=== PATIENT | male | born 1960 | race Caucasian/White ===

== ENCOUNTER 2016-06-16 10:48 | Inpatient (IN) | payer OTHER ==
[~2016-06-16] VITALS: Ht 180.3 cm; Wt 80.0 kg
--- NOTE | ~2016-06-16 | EKG ---
[address] [address] ELECTROCARDIOGRAM REPORT Name: KOBI JAVIER Room #: 439-P ADM IN M.R.#: [id number] Admission: 06/16/16 Attend Phys: Rich Tiwari MD Discharge: Date of : 62 Report #: [id number] THIS REPORT FOR: //name// [facility] ED Test Date: 2016-06-16 Test Time: 11:11:35 Pat Name: KOBI JAVIER Department: Room: 439 Gender: M Spiral Weaver: MZOOK : 1960 Requested By: Ignacio Santiago Order Number: [id number] MD: Jay Palma Measurements Intervals [place] Rate: 117 P: [place]: QRS: 53 QRSD: 80 T: 12 QT: 341 QTc: 476 Interpretive Statements Atrial fibrillation Borderline repol abnrm, inferolateral leads No previous ECG available for comparison Electronically Signed On 06-16-2016 14:59:46 CAR DUMPER OPERATOR by Jay Palma [email or web address] <ELECTRONICALLY SIGNED> By: Jay Palma MD 06/16/16 1459 1111 1111 Jay Palma MD /SETH
[~2016-06-16 10:48] MED LIST: ALDACTONE25 MG PO; CLARITIN10 MG PO; DILTIAZEM 24HR120 M2 PO; DILTIAZEM 24HR180 M1 PO; FLORINEF ACETA0.1 MG PO; FLUDROCORTISON0.1 MG PO; LASIX 20 MG TAB20 MG PO; LASIX 40 MG TAB40 M2 PO; MAGOX 400400 MG PO; METOPROLOL SUCC25 M1 PO; MIDODRINE HCL 55 M1 PO; POTASSIUM20 PO; PROTONIX40 M2 PO; TRIAMCINOLONE A80 G2 TOP; TRINATE TABLET1 TAB PO; VITAMIN B-1100 M1 PO
[2016-06-16 10:49] VITALS: BP 151/83
[2016-06-16] MEDS ORDERED: LOPERAMIDE 2 MG2 M1 PO (11:13)
[2016-06-16] MEDS ORDERED: ICY HOT BALM99.2 GM TOP (11:13)
[2016-06-16] MEDS ORDERED: APAP500 PO (11:14)
[2016-06-16] MEDS ORDERED: LEXAPRO 10 MG T10 M1 PO (11:14)
[2016-06-16] MEDS ORDERED: POTASSIUM20 PO (11:15)
[2016-06-16] MEDS ORDERED: MIDODRINE HCL10 MG PO (11:16)
[2016-06-16 11:51] LABS: HEMATOCRIT 39.4 % (42.0-52.0); HEMOGLOBIN 13.7 gm/dL (14.0-18.0); MANUAL DIFF YES; MCH 32.2 pg (26.0-34.0); MCHC 34.7 % (28.0-37.0); MCV 92.6 fL (80.0-100.0); RBC 4.25 mil/uL (4.50-6.00); RDW 14.3 % (10.5-14.5); WBC 6.6 thou/uL (4.0-11.0)
[2016-06-16 11:53] LABS: CALCIUM 8.6 mg/dL (8.5-10.1); CREATININE 0.9 mg/dL (0.6-1.3); POTASSIUM 3.6 mmol/L (3.5-5.1)
[2016-06-16 12:01] LABS: INR 1.2; PROTIME 12.3 Seconds (9.3-11.4)
[2016-06-16 12:07] LABS: URINE BILIRUBIN NEGATIVE (Negative); URINE BLOOD TRACE (Negative); URINE COLOR YELLOW; URINE GLUCOSE-RANDOM* NEGATIVE (Negative); URINE KETONES NEGATIVE (Negative); URINE NITRITE POSITIVE (Negative); URINE PROTEIN (DIPSTICK) NEGATIVE (Negative); URINE SPECIFIC GRAVITY 1.015 (1.003-1.035)
[2016-06-16 12:31] LABS: ABSOLUTE NEUTROPHILS 4.5 thou/uL (1.4-8.2); TOTAL CELL COUNT 100
[2016-06-16 12:32] LABS: HYPOCHROMASIA SLIGHT; PLATELET COUNT 81 thou/uL (150-400)
[2016-06-16 12:41] LABS: AMORPHOUS PHOSPHATES Few /LPF (None Seen)
[2016-06-16 12:42] LABS: CASTS None Seen /LPF (None Seen); SQUAMOUS 0-3 Few /LPF (0-3); URINE RBC 0-2 Rare /HPF (0-2); URINE WBC 0-5 Rare /HPF (0-5)
[2016-06-16 14:00] VITALS: BP 136/84
[2016-06-16 14:25] VITALS: BP 142/71
[2016-06-16 19:45] VITALS: BP 126/73
[2016-06-16 23:16] VITALS: BP 128/83
[2016-06-17 04:00] VITALS: BP 122/80
[2016-06-17 06:12] LABS: HEMATOCRIT 40.1 % (42.0-52.0); HEMOGLOBIN 13.7 gm/dL (14.0-18.0); MCH 31.9 pg (26.0-34.0); MCHC 34.2 % (28.0-37.0); MCV 93.3 fL (80.0-100.0); RBC 4.3 mil/uL (4.50-6.00); RDW 14.1 % (10.5-14.5); WBC 7.2 thou/uL (4.0-11.0)
[2016-06-17 06:28] LABS: POTASSIUM 3.5 mmol/L (3.5-5.1)
[2016-06-17 06:29] LABS: ALBUMIN 2.9 g/dL (3.4-5.0); CALCIUM 8.8 mg/dL (8.5-10.1); CREATININE 0.9 mg/dL (0.6-1.3); TOTAL BILIRUBIN 4.4 mg/dL (<0.1-1.0); TOTAL PROTEIN 7.2 g/dL (6.4-8.2)
[2016-06-17 08:00] VITALS: BP 124/77
[2016-06-17 12:00] VITALS: BP 121/91
[2016-06-17 15:49] VITALS: BP 126/78
[2016-06-17 20:00] VITALS: BP 111/65
[2016-06-18 05:00] VITALS: BP 100/42
[2016-06-18 07:46] VITALS: BP 115/81
[2016-06-18 12:47] VITALS: BP 94/62
[2016-06-18] MEDS ORDERED: CLONAZEPAM 1 MG1 M1 PO (13:58)
[2016-06-18] MEDS ORDERED: METOPROLOL SUCC25 M1 PO (15:00)
[2016-06-18 15:08] VITALS: BP 94/62
== END 2016-06-18 15:26 | disposition home or self-care (01) | DRG 308 ==
LOC: ER 10:48 → 4S 13:39 → EROBS 13:39 → 4S 14:01
PROVIDERS: Emergency Medicine
DX: I48.2 Chronic atrial fibrillation (principal); E43 Unspecified severe protein-calorie malnutrition; N18.6 End stage renal disease; I12.0 Hypertensive chronic kidney disease with stage 5 chronic kidney disease or end stage renal disease; I95.1 Orthostatic hypotension; K74.60 Unspecified cirrhosis of liver; F10.10 Alcohol abuse, uncomplicated; Y90.9 Presence of alcohol in blood, level not specified; G47.33 Obstructive sleep apnea (adult) (pediatric); Z96.642 Presence of left artificial hip joint; Z79.01 Long term (current) use of anticoagulants; Z68.24 Body mass index [BMI] 24.0-24.9, adult; Z82.49 Family history of ischemic heart disease and other diseases of the circulatory system; Z82.3 Family history of stroke; Z98.890 Other specified postprocedural states; Z79.899 Other long term (current) drug therapy; Z28.21 Immunization not carried out because of patient refusal; Z87.891 Personal history of nicotine dependence
CPT/HCPCS: 10100

== ENCOUNTER 2016-12-31 21:41 | Inpatient (IN) | payer OTHER ==
[~2016-12-31] VITALS: Ht 180.3 cm; Wt 82.6 kg
--- NOTE | ~2016-12-31 | HC ---
[facility] [place] [address] CONSULTATION Name: KOBI JAVIER Room #: 202-P [facility] IN M.R.#: [id number] Admission: 01/01/17 Attend Phys: Abraham Hutchison DO Discharge: Date of : 62 Report #: [id number] THIS REPORT FOR: //name// CC: Gregory William REASON FOR CONSULTATION: Atrial fibrillation. 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 He has permanent atrial fibrillation and orthostatic hypotension. He now is admitted with recurrent falls and orthostatic hypotension. I have been asked to see him in light of an elevated ventricular response with his atrial fibrillation. He denies palpitations. He denies chest pain, pressure, or ischemic type symptoms. There have been no heart failure symptoms including orthopnea, paroxysmal nocturnal dyspnea, or lower extremity edema. His lightheadedness occurs when he goes from a sitting or lying to standing position. ALLERGIES: There are no known drug allergies. MEDICATIONS: Include Protonix 40 mg daily, Aldactone 25 mg 3 times a day, Florinef 0.2 mg daily, Lexapro 10 mg daily, and midodrine 10 mg 3 times a day. PAST MEDICAL HISTORY: Medical records have been reviewed and include a history of left hip replacement, alcoholic cirrhosis, neuropathy, and permanent atrial fibrillation. An echo a little over a year ago was normal. He has a history of orthostasis from volume depletion in the past. He has a history of esophageal varices and portal hypertensive gastropathy. SOCIAL HISTORY: He has been a heavy drinker. He sales kitchen cabinets. , 3 children. FAMILY HISTORY: Unremarkable for premature coronary artery disease. REVIEW OF SYSTEMS: All systems negative except as that noted above. PHYSICAL EXAMINATION: GENERAL: A pleasant gentleman, in no distress. VITAL SIGNS: Blood pressure is 135/84, heart rate of 100 and irregular, he is afebrile, 5 feet 11 inches tall. HEENT: There are neither xanthelasma, subcutaneous xanthomata, oral mucosal or digital cyanosis or kyphoscoliosis present. CHEST: Clear to auscultation and percussion. CARDIAC: An irregularly irregular rhythm with normal S1, S2. No murmurs or rubs. ABDOMEN: Soft and nontender. No ascites. EXTREMITIES: Without cyanosis, clubbing, or edema. Radial pulses are 2+. [facility] [address] [place] [address] CONSULTATION Name: KOBI JAVIER Room #: 202-P [facility] IN M.R.#: [id number] Admission: 01/01/17 Attend Phys: Abraham Hutchison DO Discharge: Date of : 62 Report #: [id number] NEUROLOGIC: Alert with a nonfocal exam. LABORATORY DATA: Sodium 136, potassium 3.5, creatinine 0.8. Troponin is negative. ProBNP is negative. White count 6.4, hemoglobin 12, hematocrit 37, and platelet count 54,000. Chest x-ray demonstrates basilar atelectasis. Head CT demonstrates nothing acute. EKG, atrial fibrillation, otherwise normal. IMPRESSION: 1. Atrial fibrillation, permanent. 2. History of orthostatic hypotension. 3. Alcoholic cirrhosis. RECOMMENDATIONS: I believe that his orthostatic symptoms are likely related to intravascular volume depletion and I would consider reduction in his Aldactone dose. With his history of cirrhosis and advanced liver disease, anticoagulant therapy remains relatively contraindicated. I have added back a low dose metoprolol succinate for improve rate control of his atrial fibrillation, other than this no additional testing is needed at this point. Thank you for asking me to participate in his care. <ELECTRONICALLY SIGNED> By: Zeeshan Christopher MD, FACC 01/05/17 1633 0842 1100 Zeeshan Christopher MD, FACC /nt
--- NOTE | ~2016-12-31 | EKG ---
[address] [place] [address] ELECTROCARDIOGRAM REPORT Name: KOBI JAVIER Room #: 202-P ADM IN M.R.#: [id number] Admission: 01/01/17 Attend Phys: Rudy William DO Discharge: Date of : 62 Report #: [id number] THIS REPORT FOR: //name// [facility] ED Test Date: 2017-01-01 Test Time: 00:05:18 Pat Name: KOBI JAVIER Department: Room: 202 Gender: M Garnett Fixer: Mikayla CALDWELL : 1960 Requested By: Cameron Milton Order Number: [id number] MD: Zeeshan Christopher Measurements Intervals [place] Rate: 100 P: [place]: QRS: 39 QRSD: 97 T: -5 QT: 363 QTc: 469 Interpretive Statements Atrial fibrillation Borderline repol abnrm, inferolateral leads Compared to ECG 07/31/2016 22:04:27 No significant change was found Electronically Signed On 01-01-2017 9:04:19 CDT by Zeeshan Christopher [email or web address] <ELECTRONICALLY SIGNED> By: Zeeshan Christopher MD, [facility] 01/01/17 0904 0005 0005 Zeeshan Christopher MD, [facility] /EPI
[~2016-12-31 21:41] MED LIST changes: +APAP500 PO; +CLONAZEPAM 1 MG1 M1 PO; +ICY HOT BALM99.2 GM TOP; +LEXAPRO 10 MG T10 M1 PO; +LOPERAMIDE 2 MG2 M1 PO; +MIDODRINE HCL10 MG PO
[2016-12-31 22:32] VITALS: BP 125/80
[2017-01-01 00:19] LABS: HEMOGLOBIN 12.3 gm/dL (14.0-18.0); MCH 30.8 pg (26.0-34.0); MCHC 33.4 g/dL (28.0-37.0); MCV 92.2 fL (80.0-100.0); RBC 4.01 mil/uL (4.50-6.00); RDW 17.3 % (10.5-14.5); WBC 4.9 thou/uL (4.0-11.0)
[2017-01-01 00:27] LABS: ANION GAP 9 mmol/L (7-16); BUN 5 mg/dL (7-18); CALCIUM 8.6 mg/dL (8.5-10.1); CHLORIDE 102 mmol/L (98-107); CO2 29 mmol/L (21-32); CREATININE 0.8 mg/dL (0.7-1.3); GLUCOSE 119 mg/dL (74-106); POTASSIUM 3.6 mmol/L (3.5-5.1); SODIUM 140 mmol/L (136-145)
[2017-01-01 00:32] LABS: INR 1.2; PROTIME 12.1 Seconds (9.3-11.4)
[2017-01-01 00:40] LABS: NT-PRO BRAIN NAT PEPTIDE 111 pg/mL (<300); TROPONIN-I < 0.04 ng/mL (<0.04-0.07)
[2017-01-01 07:11] VITALS: BP 118/79
[2017-01-01 08:50] VITALS: BP 119/76
[2017-01-01 11:00] VITALS: BP 142/76
[2017-01-01 15:47] VITALS: BP 131/88
[2017-01-01 20:00] VITALS: BP 137/86
[2017-01-02] VITALS (8 sets, daily range): BP systolic 106–141; BP diastolic 61–95
[2017-01-02 04:58] LABS: HEMATOCRIT 37.9 % (42.0-52.0); HEMOGLOBIN 12.8 gm/dL (14.0-18.0); MCHC 33.8 g/dL (28.0-37.0); MCV 91.7 fL (80.0-100.0); PLATELET COUNT 54 thou/uL (150-400); RBC 4.13 mil/uL (4.50-6.00); RDW 16.7 % (10.5-14.5); WBC 6.4 thou/uL (4.0-11.0)
[2017-01-02 05:04] LABS: MANUAL DIFF YES
[2017-01-02 05:14] LABS: ALBUMIN 2.9 g/dL (3.4-5.0); CALCIUM 8.2 mg/dL (8.5-10.1); CREATININE 0.8 mg/dL (0.7-1.3); POTASSIUM 3.5 mmol/L (3.5-5.1); TOTAL BILIRUBIN 4.3 mg/dL (<0.1-1.0)
[2017-01-02 05:30] LABS: TOTAL PROTEIN 7.6 g/dL (6.4-8.2)
[2017-01-02 05:41] LABS: ABSOLUTE NEUTROPHILS 4.4 thou/uL (1.4-8.2); ANISOCYTOSIS 1+; TOTAL CELL COUNT 100
[2017-01-02 05:42] LABS: PLATELET ESTIMATE DECREASED
[2017-01-02 16:34] LABS: MAGNESIUM 1.3 mg/dL (1.8-2.4); PHOSPHORUS 2.8 mg/dL (2.5-4.9)
[2017-01-02 17:18] LABS: URINE BILIRUBIN 2+ (Negative); URINE BLOOD TRACE (Negative); URINE COLOR ORANGE; URINE GLUCOSE-RANDOM* TRACE (Negative); URINE KETONES TRACE (Negative); URINE LEUKOCYTES-REFLEX 1+ (Negative); URINE PROTEIN (DIPSTICK) 1+ (Negative); URINE UROBILINOGEN >= 8.0 E.U./dl (0.2-1.0)
[2017-01-02 17:21] LABS: ICTOTEST (BILI CONFIRMATORY) Positive (Negative)
[2017-01-02 17:24] LABS: CASTS None Seen /LPF (None Seen); CRYSTALS None Seen /LPF (None Seen); SQUAMOUS None Seen /LPF (0-3)
[2017-01-02 17:28] LABS: URINE RBC 0-2 Rare /HPF (0-2); URINE WBC-REFLEX 6-15 Few /HPF (0-5)
[2017-01-02 20:06] LABS: FREE T4 1.38 ng/dL (0.82-1.77)
[2017-01-03] VITALS (7 sets, daily range): BP systolic 22–130; BP diastolic 68–84
[2017-01-03 04:14] LABS: HEMATOCRIT 38.2 % (42.0-52.0); HEMOGLOBIN 12.9 gm/dL (14.0-18.0); MCH 31.2 pg (26.0-34.0); MCHC 33.7 g/dL (28.0-37.0); MCV 92.4 fL (80.0-100.0); PLATELET COUNT 66 thou/uL (150-400); RBC 4.14 mil/uL (4.50-6.00); RDW 16.7 % (10.5-14.5); WBC 8.2 thou/uL (4.0-11.0)
[2017-01-03 04:31] LABS: MANUAL DIFF YES
[2017-01-03 04:41] LABS: POTASSIUM 3.5 mmol/L (3.5-5.1)
[2017-01-03 04:50] LABS: CALCIUM 8.6 mg/dL (8.5-10.1); CREATININE 0.9 mg/dL (0.7-1.3)
[2017-01-03 05:24] LABS: ABSOLUTE NEUTROPHILS 5.5 thou/uL (1.4-8.2); TOTAL CELL COUNT 100
[2017-01-03 05:25] LABS: ANISOCYTOSIS 1+; PLATELET ESTIMATE DECREASED
[2017-01-03 05:28] LABS: LARGE PLATELETS OCCASIONAL
[2017-01-03 20:04] LABS: AMP/METHAMP Negative (Negative); BARBITURATES Negative (Negative); BENZODIAZEPINES Negative (Negative); COCAINE Negative (Negative); METHADONE Negative (Negative); OPIATES Negative (Negative); PCP Negative (Negative); THC Negative (Negative)
[2017-01-03 20:14] LABS: ALBUMIN 2.8 g/dL (3.4-5.0); DIRECT BILIRUBIN 2.2 mg/dL (<0.1-0.3); MAGNESIUM 1.8 mg/dL (1.8-2.4); TOTAL BILIRUBIN 4.5 mg/dL (<0.1-1.0); TOTAL PROTEIN 7.2 g/dL (6.4-8.2)
[2017-01-04 03:28] LABS: HEMATOCRIT 35.6 % (42.0-52.0); HEMOGLOBIN 11.9 gm/dL (14.0-18.0); MCH 31.1 pg (26.0-34.0); MCHC 33.4 g/dL (28.0-37.0); MCV 93.1 fL (80.0-100.0); PLATELET COUNT 82 thou/uL (150-400); RBC 3.82 mil/uL (4.50-6.00); RDW 17.3 % (10.5-14.5); WBC 7.5 thou/uL (4.0-11.0)
[2017-01-04 03:34] LABS: MANUAL DIFF YES
[2017-01-04 03:42] LABS: CALCIUM 8.1 mg/dL (8.5-10.1); CREATININE 0.8 mg/dL (0.7-1.3); MAGNESIUM 1.6 mg/dL (1.8-2.4); PHOSPHORUS 3.9 mg/dL (2.5-4.9); POTASSIUM 3.5 mmol/L (3.5-5.1)
[2017-01-04 04:40] VITALS: BP 106/76
[2017-01-04 07:25] VITALS: BP 122/84
[2017-01-04 08:45] LABS: ABSOLUTE NEUTROPHILS 5.4 thou/uL (1.4-8.2); PLATELET ESTIMATE DECREASED; TOTAL CELL COUNT 100
[2017-01-04 08:46] LABS: ANISOCYTOSIS 1+
[2017-01-04 11:30] VITALS: BP 105/70
[2017-01-04 15:27] LABS: ALBUMIN 2.5 g/dL (3.4-5.0); DIRECT BILIRUBIN 1.7 mg/dL (<0.1-0.3); TOTAL BILIRUBIN 3.3 mg/dL (<0.1-1.0); TOTAL PROTEIN 6.5 g/dL (6.4-8.2)
[2017-01-04 16:00] VITALS: BP 111/74
[2017-01-04 19:33] VITALS: BP 125/80
[2017-01-05 04:25] VITALS: BP 150/95
[2017-01-05 07:20] VITALS: BP 132/87
[2017-01-05 11:20] VITALS: BP 123/87
[2017-01-05 12:25] LABS: ALBUMIN 2.7 g/dL (3.4-5.0); DIRECT BILIRUBIN 1.8 mg/dL (<0.1-0.3); TOTAL BILIRUBIN 3.4 mg/dL (<0.1-1.0); TOTAL PROTEIN 6.8 g/dL (6.4-8.2)
[2017-01-05 15:25] VITALS: BP 136/84
[2017-01-05 19:13] VITALS: BP 126/86
[2017-01-06 03:03] VITALS: BP 150/86
[2017-01-06 03:06] LABS: HEMATOCRIT 36.2 % (42.0-52.0); HEMOGLOBIN 12.3 gm/dL (14.0-18.0); MCH 31.5 pg (26.0-34.0); MCHC 33.8 g/dL (28.0-37.0); MCV 93.1 fL (80.0-100.0); PLATELET COUNT 117 thou/uL (150-400); RBC 3.89 mil/uL (4.50-6.00); RDW 17.2 % (10.5-14.5); WBC 7.6 thou/uL (4.0-11.0)
[2017-01-06 03:08] LABS: CALCIUM 8.4 mg/dL (8.5-10.1); CREATININE 0.8 mg/dL (0.7-1.3); POTASSIUM 3.1 mmol/L (3.5-5.1)
[2017-01-06 03:13] LABS: MANUAL DIFF YES
[2017-01-06 07:05] VITALS: BP 116/51
[2017-01-06 09:35] LABS: ABSOLUTE NEUTROPHILS 4.7 thou/uL (1.4-8.2); PLATELET ESTIMATE NORMAL; TOTAL CELL COUNT 100
[2017-01-06] MEDS ORDERED: KEFLEX500 MG PO (10:12)
[2017-01-06] MEDS ORDERED: XIFAXAN550 MG PO (10:14)
[2017-01-06] MEDS ORDERED: TRAMADOL 50 MG50 MG PO (10:14)
[2017-01-06 11:00] VITALS: BP 105/69
[2017-01-06 15:10] VITALS: BP 103/70
[2017-01-06 20:08] VITALS: BP 127/79
[2017-01-07 03:34] VITALS: BP 137/89
[2017-01-07 07:00] VITALS: BP 131/80
== END 2017-01-07 10:17 | DRG 205 ==
LOC: ER 21:41 → 2N 01-01 05:45 → EROBS 01-01 05:45 → 2N 01-01 07:13
PROVIDERS: Emergency Medicine; Family Medicine; Internal Medicine Geriatric Medicine; Nurse Practitioner Adult Health
DX: S22.31XA Fracture of one rib, right side, initial encounter for closed fracture (principal); G93.41 Metabolic encephalopathy; F10.239 Alcohol dependence with withdrawal, unspecified; Z96.642 Presence of left artificial hip joint; I48.2 Chronic atrial fibrillation; F32.9 Major depressive disorder, single episode, unspecified; I95.9 Hypotension, unspecified; K70.31 Alcoholic cirrhosis of liver with ascites; E87.6 Hypokalemia; G62.9 Polyneuropathy, unspecified; W18.39XA Other fall on same level, initial encounter; Y93.89 Activity, other specified; Y92.098 Other place in other non-institutional residence as the place of occurrence of the external cause; Z79.01 Long term (current) use of anticoagulants; Z82.49 Family history of ischemic heart disease and other diseases of the circulatory system; Z82.3 Family history of stroke; Z87.891 Personal history of nicotine dependence; Z79.899 Other long term (current) drug therapy; Y99.8 Other external cause status
CPT/HCPCS: 10081

== ENCOUNTER 2018-09-29 21:27 | Inpatient (IN) | payer OTHER ==
[~2018-09-29] VITALS: Ht 193.7 cm; Wt 72.6 kg
[~2018-09-29 21:27] MED LIST changes: +KEFLEX500 MG PO; +TRAMADOL 50 MG50 MG PO; +XIFAXAN550 MG PO
[2018-09-29 21:28] VITALS: BP 124/76
[2018-09-29] MEDS ORDERED: METOPROLOL SUCC25 M1 PO (21:41)
[2018-09-29] MEDS ORDERED: DIGOXIN125 MCG PO (21:41)
[2018-09-29] MEDS ORDERED: LACTULOSE10 GM/154 PO (21:42)
[2018-09-29 22:24] LABS: HEMATOCRIT 43.4 % (42.0-52.0); HEMOGLOBIN 14.8 gm/dL (14.0-18.0); MCH 31.5 pg (26.0-34.0); MCV 92.6 fL (80.0-100.0); PLATELET COUNT 171 thou/uL (150-400); RBC 4.68 mil/uL (4.50-6.00); RDW 13.3 % (10.5-14.5)
[2018-09-29 22:28] LABS: URINE BILIRUBIN NEGATIVE (Negative); URINE BLOOD NEGATIVE (Negative); URINE CLARITY CLEAR; URINE COLOR YELLOW; URINE GLUCOSE-RANDOM* NEGATIVE (Negative); URINE KETONES NEGATIVE (Negative); URINE LEUKOCYTES-REFLEX NEGATIVE (Negative); URINE NITRITE-REFLEX NEGATIVE (Negative); URINE PROTEIN (DIPSTICK) NEGATIVE (Negative); URINE SPECIFIC GRAVITY <= 1.005 (1.005-1.035)
[2018-09-29 22:37] LABS: ALBUMIN 3.1 g/dL (3.4-5.0); ANION GAP 14 mmol/L (7-16); BUN 5 mg/dL (7-18); CALCIUM 8.2 mg/dL (8.5-10.1); CHLORIDE 106 mmol/L (98-107); CO2 26 mmol/L (21-32); CREATININE 0.9 mg/dL (0.7-1.3); GLUCOSE 113 mg/dL (74-106); SGOT 86 U/L (15-37); SGPT 37 U/L (30-65); SODIUM 146 mmol/L (136-145); TOTAL BILIRUBIN 2.7 mg/dL (<0.1-1.0); TOTAL PROTEIN 6.7 g/dL (6.4-8.2)
[2018-09-29 22:37] LABS: AMP/METHAMP Negative (Negative); BARBITURATES Negative (Negative); BENZODIAZEPINES Negative (Negative); COCAINE Negative (Negative); METHADONE Negative (Negative); OPIATES Negative (Negative); PCP Negative (Negative)
[2018-09-29 22:52] LABS: SALICYLATE < 2.8 mg/dL (2.8-20.0)
[2018-09-29 22:59] LABS: ANISOCYTOSIS 1+; PLATELET ESTIMATE NORMAL
[2018-09-30 06:31] VITALS: BP 123/75
[2018-09-30 07:15] VITALS: BP 129/84
[2018-09-30 11:45] VITALS: BP 137/70
--- NOTE | 2018-09-30 16:43 | EKG ---
[address] [place] [address] ELECTROCARDIOGRAM REPORT Name: KOBI JAVIER Room #: [facility] ADM IN M.R.#: [id number] ������������������ Admission: 09/30/18 ������������������ Attend Phys: Quan Vega DO Discharge: ������������������ Date of : 62 Report #: [id number] ����������������������������������������������������������������� [id number] THIS REPORT FOR: //name// [facility] Test Date: 2018-09-30 Test Time: 11:39:27 Pat Name: KOBI JAVIER Department: Room: [facility] Gender: M Work Station Support Specialist: Grabiel LYNCH : 1960 Requested By: Quan Vega Order Number: [id number] MD: Ezra Ibrahim Measurements Intervals [place] Rate: 101 P: [place]: QRS: 48 QRSD: 84 T: -77 QT: 371 QTc: 481 Interpretive Statements Atrial fibrillation Nonspecific ST segment abnormality Compared to ECG 01/01/2017 00:05:18 No significant changes Electronically Signed On 09-30-2018 16:43:15 CDT by Ezra Ibrahim [email or web address] ��������������������������������������������� <ELECTRONICALLY SIGNED> ���������������������������������������� By: Ezra Ibrahim MD ��������������������������������������������� 09/30/18 1643 1139 1139 Ezra Ibrahim MD /SETH
[2018-09-30 20:29] VITALS: BP 142/43
--- NOTE | 2018-10-01 00:58 | NUR ---
ASSUMED CARE @ 19:15. IN HIS ROOM. A&OX4. C/O NAUSEA, ZOFRAN ORDER PROCURED, AND PROVIDED. CIWA 15, 2MG ATIVAN PROVIDED. NAUSEA RESOLVED AND 2100 MEDS GIVEN. WILL CONTINUE TO MONITOR.
[2018-10-01 01:07] VITALS: BP 142/43
--- NOTE | 2018-10-01 04:23 | NUR ---
AWAKENED @ 0400, USED RESTROOM AND RETURNED TO BED. DENIES PAIN, ANXIETY DENIES NEED FOR MEDICATION. WILL CONTINUE TO MONITOR.
[2018-10-01 04:49] LABS: HEMATOCRIT 38.2 % (42.0-52.0); HEMOGLOBIN 13.2 gm/dL (14.0-18.0); MCH 31.9 pg (26.0-34.0); MCHC 34.5 g/dL (28.0-37.0); MCV 92.6 fL (80.0-100.0); PLATELET COUNT 137 thou/uL (150-400); RBC 4.13 mil/uL (4.50-6.00); RDW 13.2 % (10.5-14.5); WBC 8.2 thou/uL (4.0-11.0)
[2018-10-01 04:58] LABS: CALCIUM 8.4 mg/dL (8.5-10.1); CREATININE 0.8 mg/dL (0.7-1.3); MAGNESIUM 1.7 mg/dL (1.8-2.4); POTASSIUM 3.7 mmol/L (3.5-5.1)
[2018-10-01 06:44] LABS: ABSOLUTE NEUTROPHILS 5.1 thou/uL (1.4-8.2)
[2018-10-01 07:35] VITALS: BP 112/68
[2018-10-01 22:15] VITALS: BP 115/71
--- NOTE | 2018-10-01 23:26 | NUR ---
ASSUMED CARE @ 19:15. LYING IN BED, AWAKE, BUT LETHARGIC. ANSWERS QUESTIONS APPROPRIATELY, A&OX4. DENIES SI AND HI. DENIES ANXIETY AND PAIN. VS STABLE. WILL CONTINUE TO MONITOR.
[2018-10-01 23:37] VITALS: BP 115/71
--- NOTE | 2018-10-02 02:36 | NUR ---
NEW ORDER FOR SEROQUEL 75MG NOW FOR SLEEP AT PTS REQUEST. HE REPORTS THAT HE HAS ONLY SLEPT 35 MINUTES SINCE HE TOOK MELATONIN @ 22:00.
[2018-10-02 07:15] VITALS: BP 101/61
--- NOTE | 2018-10-02 15:30 | NUR ---
ASSUMED PATIENT CARE AT 0700. PATIENT ORIENTED TO NAME ONLY. FLAT AFFECT, DEPRESSED MOOD, CONFUSED, FORGETFUL BEHAVIOR, EVIDENCED BY REPEATING SAME QUESTIONS, CONFUSED TO WHERE HE IS, WANTING TO CONTACT FACILIITY OF RESIDENCE TO "ASK ABOUT A BOX OF CLOTHES," THAT PATIENT FEELS HE NEEDS ITEMS HERE. ONLY CLOTHING HERE WAS IN SECURITY PROPERTY, WHICH NURSE OBTAINED FROM SECURITY, WHO BROUGHT TO UNIT. LATER STATED THAT HE HAD A WALLET WITH A LOT OF MONEY IN IT. STATED THAT HE HAS A LOT OF MONEY--MY WHOLE LIFE SAVINGS." NURSE CLARIFIED WITH SECURITY THAT THEY HAVE NOTHING LOCKED UP FOR PATIENT. RELAYED INFORMATION TO PATIENT.
[2018-10-02 18:05] VITALS: BP 101/61
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
--- NOTE | 2018-10-02 19:11 | NUR ---
PATIENT'S BED SCALE WEIGHT 193.7 LBS. THIS DATE
[2018-10-02 20:53] VITALS: BP 101/67
--- NOTE | 2018-10-03 03:33 | NUR ---
WITHDRAWN TO ROOM AT START OF SHIFT-UPON INITAL ASSESSMENT LYING INROOM WITH LIGHTS OFF/EYES CLOSED (AT 1945). DYSPHORIC MOOD-ABRUPT/BRIEF RESPONSES TO QUESTIONS/INQUIRIES FROM THIS RN-CONVERSING WITH EYES CLOSED UNTIL ASKED IF HE COULD OPEN THEM. DESCRIBES MOOD "TIRED" "EXHUASTED"-WHEN ASKED IF I COULD GET HIM ANYTHING HE STATES "OUT OF HERE" DENIES C/O PAIN/DISCOMFORT. DENIES SI/SH/HI. NO NOTED TREMOR,DIAPHORESIS,ACUTE ANXIETY,DENIES NAUSEA. VS STABLE. APPEARS GUARDED,WITHDRAWN AND MINIMALLY INVESTED IN TX. DID COME OUT OF ROOM BRIEFLY AT 1130 TO GET ICE AND GAIT APPEARS STEADY WITHOUT ASSISTIVE DEVICES. [id number] PO PRN ALONG WITH MELATONIN 3MG PO PRN AT 2145 PER REQUEST FOR SLEEP.
--- NOTE | 2018-10-03 05:06 | NUR ---
2100 METOPROLOL 25MG NOT ADMINISTERD D/T BP OF 100/68-PT DOES REPORT DIZZINESS UPON STANDING AND WITH POSITION CHANGES-PULSE 80 AND REGULAR
[2018-10-03 07:15] VITALS: BP 111/77
[2018-10-03 07:30] VITALS: BP 111/77
[2018-10-03 07:40] VITALS: BP 111/77
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
--- NOTE | 2018-10-03 08:45 | NUR ---
PT DIDN'T WANT TO GO TO GROUP. BACK TO BED AFTER BREAKFAST.
--- NOTE | 2018-10-03 15:12 | NUR ---
PT TOOK SHOWER AND DRESSING CHANGED TO LEFT WRIST. SUTURES INTACT. NO SIGNS OF REDDNESS OR DRAINAGE. APPLIED OINT AND RE-WRAPPED WITH STERILE QUAZE AND SECURED WITH TAPE.
--- NOTE | 2018-10-03 16:00 | NUR ---
PT ASKED FOR BIG BLACK BOOK TO CANCEL DR. SCOTT FOR TOMMORROW. PT HAS BEEN LOOKING AT HIS BLACK BOOK AND TALKING ON PHONE.
[2018-10-03 17:30] VITALS: BP 123/73
[2018-10-03 19:35] VITALS: BP 128/74
--- NOTE | 2018-10-03 19:43 | NUR ---
ASSUMED CARE OF THE PT AT 1914 PM. ALERT ET ORIENTED X 3. MAKES NEEDS KNOWN. RESTING IN BED WHEN THIS ASSOCIATE PRINCIPAL CAME ON DUTY. HEART RATE REGULAR, LUNGS CLEAR BILATERALLY, +BS HEARD IN ALL 4 QUADRANTS. +PP BILATERALLY. DENIES SI/HI/A/D. DENIES A/V HALLUNICATIONS. REMAINS ON 12 MINUTE CHECKS FOR HER SAFETY.
--- NOTE | 2018-10-04 02:12 | NUR ---
THE PT HAS BEEN SLEEPING MOST OF THE NOC SHIFT. NO C/O PAIN AT THIS TIME. REMAINS ON 12 MINUTE CHECKS FOR HIS SAFETY. DRESSING TO LEFT WRIST, C/D/I.
--- NOTE | 2018-10-04 06:22 | NUR ---
THE PT SLEPT 11 HOURS LAST NIGHT.
[2018-10-04 07:15] VITALS: BP 97/64
[2018-10-04 08:00] VITALS: BP 97/64
--- NOTE | 2018-10-04 08:30 | NUR ---
PT UP EATING BREAKFAST. PT TOOK PO MEDS WITHOUT ISSUES. PT EATS BREAKFAST THEN GOES BACK TO ROOM. PT REFUSES GROUPS.
[2018-10-04] MEDS ORDERED: XIFAXAN550 MG PO (10:05)
[2018-10-04] MEDS ORDERED: DIGOXIN250 MCG PO (10:06)
[2018-10-04] MEDS ORDERED: LOPRESSOR25 PO (10:06)
[2018-10-04] MEDS ORDERED: MIDODRINE HCL 55 M1 PO (10:06)
[2018-10-04] MEDS ORDERED: GABAPENTIN 100100 MG PO (10:08)
[2018-10-04] MEDS ORDERED: PEPCID20 MG PO (10:09)
[2018-10-04] MEDS ORDERED: PRENATAL COMPL1 EACH PO (10:09)
[2018-10-04] MEDS ORDERED: MELATONIN3 MG PO (10:09)
[2018-10-04 10:40] VITALS: BP 97/64
[2018-10-04 10:59] VITALS: BP 97/64
--- NOTE | 2018-10-04 11:03 | NUR ---
Patient Name: KOBI JAVIER Admission Date: 09/30/18 DISCHARGE PLAN: Pt will be discharge to [address] in [place], [place]. Care Assessment: Pt was assessed by Dr. Vega concerning his suicide attempt. Level II Assessment: None Transportation: Pt will be discharge through [facility]. Special Instructions/Notes: Pt was scheduled for Php program through [facility] on , October 06, 2018 at 10:00am. Pt will be completing his intake [facility] [place] [facility] [place] [address]. DISCHARGE TO PLACEMENT: [address] Facility: Phone: Fax: Address: [address] [place] [address] Contact Name: PCP: Psychiatrist: [facility]
--- NOTE | 2018-10-04 12:35 | NUR ---
PT GIVEN NON-STICK DRESSING AND TAPE FOR LACERATION TO LEFT WRIST. PT GETTING READY TO LEAVE. BREASTFEEDING EDUCATOR TOLD PT THAT [facility] IS HERE. PT GOT UP AND YELLED WELL OK LETS GET OUT OF HERE. PT WAS WANTING TO SEE HIS CELL PHONE. PT LEFT VIA W/C. TO SECURITY AND OBTAINED HIS PERSONAL BELONGINGS.
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
--- NOTE | 2018-10-06 21:38 | D ---
[facility] [place] [address] DISCHARGE SUMMARY Name: KOBI JAVIER Room #: 520B-B DIS IN M.R.#: [id number] Admission: 09/30/18 ������������������ Attend Phys: Quan Vega DO Discharge: 10/04/18 ������������������ Date of : 62 Report #: [id number] THIS REPORT FOR: //name// CC: Quan Vega [facility] physician/PCP Jose Antonio Nava DATE OF SERVICE: 10/04/2018 KENNEL ATTENDANT AT THE TIME OF DISCHARGE: Quan Márquez MD DISCHARGE DIAGNOSES: 1. Unspecified depression, resolved. 2. Alcohol intoxication, resolved. 3. Substance use disorder for alcohol, at least moderate degree. DISCHARGE PLAN: The patient is discharged to [facility] in [place], [place]. The patient has appointment at [facility], 10/06/2018 at 10:00 a.m. His intake is located at [address] [place] [address]. The [facility] is located at [address] [place] [address]. Regular diet. Absolutely no alcohol or illicit drugs. DISCHARGE MEDICATIONS: Xifaxan 550 mg p.o. b.i.d.; midodrine 10 mg p.o. at 0600, 1200, 1800 for hypertension; digoxin 25 mcg oral daily for atrial fibrillation, rate control; metoprolol tartrate 25 mg p.o. b.i.d. for rate control; Neurontin 200 mg p.o. t.i.d. for anxiety as well as reduce chances of alcohol relapse; famotidine 20 mg p.o. b.i.d. before meals for GERD. He is recommended to take a daily multivitamin and melatonin 3 mg p.o. at bedtime p.r.n. Also, lactulose 30 mL p.o. t.i.d. will be helpful for the patient to continue due to his hyperammonemia from cirrhosis. ACTIVITY LEVEL: As tolerated. REASON FOR ADMISSION: Laceration horizontally on distal left volar, requiring sutures; threats of suicide. HOSPITAL COURSE: The patient was admitted to Geriatric Psychiatric Unit. He was placed on CIWA protocol for approximately 24 hours in the event of alcohol withdrawal, there was no material withdrawal the patient went through. The patient attended some groups, was not all groups, was perhaps not the most engaged. The patient given his desperate social circumstances, he did not have family supports involved, not knowing number of his sister either. While on the unit, the patient did not make any suicide attempts or voiced to staff. We did get a call or two from a friend of him and his , but they expressed concern and the patient was given their number for him to call. [facility] [address] [place] [address] DISCHARGE SUMMARY Name: KOBI JAVIER Room #: 520B-B DIS IN M.R.#: [id number] Admission: 09/30/18 ������������������ Attend Phys: Quan Vega DO Discharge: 10/04/18 ������������������ Date of : 62 Report #: [id number] LABORATORY DATA THIS ADMISSION: CBC showed on the 20th, H and H 13.2, 38.2, white count 8.2, platelets 137. Chemistries within normal limits. Estimated GFR was 100, calcium 8.4, magnesium 1.7. Ammonia level on admission was 62. Digoxin level was 0.3, slightly low. Hospitalist did not want to adjust that further. Urinalysis was negative. UDS was positive for the alcohol. His initial level it should be noted was reportedly over 400. PHYSICAL EXAMINATION: VITAL SIGNS ON THE DAY OF DISCHARGE: Temperature 36.2, pulse rate 75, respirations 15, BP 97/64. MUSCULOSKELETAL: This is a well-developed, ambulatory male wearing hospital gown. NEUROLOGIC: Attention limited. Concentration fair. Speech is normal rate and tone. Thought process linear, goal directed. Thought content with a poverty of thought. No psychomotor agitation. No psychomotor retardation. Denied auditory, visual, or tactile hallucination. Denied suicidal intent or plan. Endorsed hopelessness and helplessness. Denied homicidal intent or plan. Memory not formally tested. Insight limited. Judgment limited. Fund of knowledge, no greater than average. PROGNOSIS: For the patient is poor given homelessness, longstanding alcoholism. ��������������������������������������������� <ELECTRONICALLY SIGNED> ���������������������������������������� By: Quan Vega DO ��������������������������������������������� 10/06/182137 06 54 Quan Vega DO /nt
== END 2018-10-04 12:46 | DRG 881 ==
LOC: ER 21:27 → SBH 09-30 01:24 → EROBS 09-30 01:24 → SBH 09-30 01:24
PROVIDERS: Emergency Medicine; Nurse Practitioner; ADMIT Psychiatry & Neurology Psychiatry
PROC: 0HQEXZZ Repair Left Lower Arm Skin, External Approach (ICD-10-PCS; principal; 2018-09-30)
DX: F32.9 Major depressive disorder, single episode, unspecified (principal); R45.851 Suicidal ideations; F19.20 Other psychoactive substance dependence, uncomplicated; K76.6 Portal hypertension; G62.9 Polyneuropathy, unspecified; Z96.642 Presence of left artificial hip joint; E87.6 Hypokalemia; S61.512A Laceration without foreign body of left wrist, initial encounter; K74.60 Unspecified cirrhosis of liver; I95.9 Hypotension, unspecified; G47.00 Insomnia, unspecified; K72.90 Hepatic failure, unspecified without coma; I48.2 Chronic atrial fibrillation; F10.229 Alcohol dependence with intoxication, unspecified; I95.1 Orthostatic hypotension; Z79.899 Other long term (current) drug therapy; X58.XXXA Exposure to other specified factors, initial encounter; Y93.89 Activity, other specified; Y92.89 Other specified places as the place of occurrence of the external cause; Y99.8 Other external cause status; Z59.0 Homelessness
CPT/HCPCS: 10880

== ENCOUNTER 2018-10-07 10:22 | Emergency (ER) | payer OTHER ==
[~2018-10-07] VITALS: Ht 180.3 cm; Wt 86.2 kg
[~2018-10-07 10:22] MED LIST changes: +DIGOXIN125 MCG PO; +DIGOXIN250 MCG PO; +GABAPENTIN 100100 MG PO; +LACTULOSE10 GM/154 PO; +LOPRESSOR25 PO; +MELATONIN3 MG PO; +PEPCID20 MG PO; +PRENATAL COMPL1 EACH PO
[2018-10-07 11:23] VITALS: BP 126/75
== END 2018-10-07 11:24 | disposition home or self-care (01) ==
LOC: ER 10:22
DX: S61.512D Laceration without foreign body of left wrist, subsequent encounter (principal); I48.91 Unspecified atrial fibrillation; I10 Essential (primary) hypertension; K74.60 Unspecified cirrhosis of liver; Z96.652 Presence of left artificial knee joint; W26.8XXD Contact with other sharp object(s), not elsewhere classified, subsequent encounter

== ENCOUNTER 2020-04-27 22:21 | Emergency (ER) | payer MEDICARE, OTHER ==
[~2020-04-27] VITALS: Ht 180.3 cm; Wt 83.9 kg
[2020-04-27] MEDS ORDERED: FOSAMAX 70 MG T70 MG PO (22:30)
[2020-04-27] MEDS ORDERED: MYSOLINE50 MG PO (22:33)
[2020-04-28 02:21] VITALS: BP 99/62
== END 2020-04-28 02:25 | disposition home or self-care (01) ==
LOC: ER 22:21
DX: S00.03XA Contusion of scalp, initial encounter (principal); I10 Essential (primary) hypertension; I48.91 Unspecified atrial fibrillation; Z79.899 Other long term (current) drug therapy; W18.39XA Other fall on same level, initial encounter; Y93.89 Activity, other specified; Y92.89 Other specified places as the place of occurrence of the external cause; Y99.8 Other external cause status

== ENCOUNTER 2020-04-28 14:09 | Emergency (ER) | payer MEDICARE, OTHER ==
[~2020-04-28] VITALS: Ht 180.3 cm; Wt 83.9 kg
[~2020-04-28 14:09] MED LIST changes: +FOSAMAX 70 MG T70 MG PO; +MYSOLINE50 MG PO
[2020-04-28 18:40] VITALS: BP 118/86
== END 2020-04-28 18:40 | disposition home or self-care (01) ==
LOC: ER 14:09
DX: S12.9XXA Fracture of neck, unspecified, initial encounter (principal); I10 Essential (primary) hypertension; I48.91 Unspecified atrial fibrillation; Z79.899 Other long term (current) drug therapy; W18.39XA Other fall on same level, initial encounter; Y93.89 Activity, other specified; Y92.89 Other specified places as the place of occurrence of the external cause; Y99.8 Other external cause status